=== PATIENT | female | born 1990 | race Asian ===

== ENCOUNTER → 2017-09-21 | Outpatient (CLI) | payer OTHER | END | disposition home or self-care (01) | LOC: C.PAPS 17:46 | PROVIDERS: ATTEND Obstetrics & Gynecology | DX: Z34.01 Encounter for supervision of normal first pregnancy, first trimester (principal) ==

== ENCOUNTER 2018-04-25 04:10 | Inpatient (IN) ==
[2018-04-25] MEDS ORDERED: LACTATED RINGER'S 1,000 ML IV PRN ×2 (04:37→07:07)
[2018-04-25] MEDS ORDERED: OXYTOCIN 30 UNITS/500 ML BAG IV PRN ×2 (04:37→14:58)
[2018-04-25] MEDS ORDERED: PENICILLIN G POTASSIUM 3 MU in DEXTROSE 5% 100 ML IV PRN (04:37)
[2018-04-25] MEDS ORDERED: LACTATED RINGER'S 1,000 ML IV SCH (04:45)
[2018-04-25 04:58] LABS: Hematocrit (blood only) 39.9 % (37-47); Hemoglobin 13.8 g/dL (12.0-16.0); Mean Corpuscular Volume 91.1 fL (80-100); Mean Platelet Volume 10.8 fL (7.4-10.4); Platelet Count 204 K/uL (130-400); RDW Coefficient of Variation 13.2 % (11.5-14.5); RDW Standard Deviation 43.6 fL (36.4-46.3); Red Blood Count 4.38 M/uL (4.2-5.4); White Blood Count 11.39 K/uL (4.8-10.8)
[2018-04-25 04:59] LABS: Mean Corpuscular Hgb Conc 34.6 g/dL (32-36)
[2018-04-25] MEDS ORDERED: PENICILLIN G POTASSIUM 6 MU in DEXTROSE 5% 250 ML IV ONE (05:00)
[2018-04-25] MEDS ORDERED: BUPIVACAINE 0.25% 30 ML VIAL ONE (05:18)
[2018-04-25] MEDS ORDERED: ePHEDrine sulfate 50 MG/ML AMP ONE (05:18)
[2018-04-25] MEDS ORDERED: fentaNYL 2MCG/ML ROPIV 1.25MG/ML 100 ML BAG EPI ONE (05:19)
[2018-04-25] MEDS ORDERED: fentaNYL citrate 100 MCG/2 ML VIAL ONE (05:19)
--- NOTE | 2018-04-25 06:27 | Anesthesiology Consultation ---
Date of Service April 25, 2018 Assessment & Plan Chart Review Chart Review: Patient NOT seen in Pre Admission Testing and Acceptable Risk for Labor Epidural Consults Requested none ASA ASA3 Proposed Anesthesia Anesthesia Type: Labor Epidural Risk / Benefits Reviewed With: PT / POA / Parent / Guardian, Accepts Plan and Informed Consent Obtained NPO Date Last Intake of Fluids: 04/25/18 Time Last Intake of Fluids: 06:25 Date Last Intake of Solids: 04/24/18 Time Last Intake of Solids: 23:00 History Height/Weight Height: 5 ft 3 in Weight: 53.977 kg Allergies Allergy/AdvReac Type Severity Reaction Status Date / Time No Known Allergies Allergy Unverified 04/14/18 20:51 Medications Home Medications Medication Instructions Recorded Confirmed Last Taken Humulin N NPH U-100 Insulin 5 unit HS 04/14/18 04/14/18 04/13/18 23:30 insulin lispro [Humalog KwikPen 5 unit AC 04/14/18 04/14/18 04/14/18 11:30 Insulin] Active Medications Generic Name Dose Route Start Last Admin Trade Name Freq PRN Reason Stop Dose Admin Lactated Ringer's 1,000 mls @ 999 mls/hr 04/25/18 04:37 04/25/18 05:30 Lr IV 05/25/18 04:36 0 mls/hr .Q1H1M PRN Infusion (Pre-Anesthesia) Lactated Ringer's 1,000 mls @ 125 mls/hr 04/25/18 04:45 04/25/18 07:02 Lr IV 04/27/18 04:44 125 mls/hr .Q8H [facility] Administration Past Medical History Medical History Gestational diabetes Past Anesthesia History No Family Hx of Anesthesia Complications no prior history of anes Motion Sickness Screening History of Motion Sickness: Yes Social History Smoking Status: Never smoker Do You Dip or Chew Tobacco: No Hx Alcohol Use: No Hx Substance Use: No substance use type: does not use Exercise / Class Metabolic Activity Negative for chest pain or shortness of breath. Review of Systems Patient denies active symptoms of GERD. Patient denies history of abnormal bleeding or bleeding disorder. Patient denies active use of anticoagulants other than low dose aspirin. Patient denies numbness, tingling or weakness in his lower extremities. Physical Exam Vital Signs Last Vital Signs Temp 37 C 04/25/18 04:20 Pulse 58 L 04/25/18 06:18 Resp 24 04/25/18 04:20 BP 138/82 04/25/18 05:56 Pulse Ox 93 04/25/18 06:18 Constitutional not obese (Gravid uterus) ENMT Mouth: + small oral opening; no TMJ abnormality Thyromental Distance: < 3.5 Finger Breadths Mallampati Class: III Neck normal visual inspection; neck extension not limited Respiratory normal respiratory effort Auscultation: lungs clear to auscultation bilaterally Cardiovascular Rate/Rhythm: regular rate and regular rhythm Heart Sounds: no murmur Psychiatric A+Ox3, euthymic affect Orientation: alert and oriented x 3 Testing Laboratory Results 04/25/18 04:50
--- NOTE | 2018-04-25 06:37 | History & Physical Report ---
Date of Service April 25, 2018 Assessment & Plan (1) Normal labor: IUP at 38 6/7 weeks in active labor GBS positive start PCN G prophylaxis patient requesting epidural analgesia anticipate vaginal Present on Admission?: Yes (2) Insulin controlled gestational diabetes mellitus (GDM) in third trimester: monitor BSG's during labor. Present on Admission?: Yes History of Present Illness Primary Care Provider: NO PCP Patient is a 27 yo female who presents at 38 6/7 weeks with regular contractions every 5 minutes with bloody show. No SPROM. complicated by GBS carrier status & GDM on insulin. Blood sugars have been well controlled during the Allergies Allergy/AdvReac Type Severity Reaction Status Date / Time No Known Allergies Allergy Unverified 04/14/18 20:51 Home Medications Home Medications Medication Instructions Recorded Confirmed Type Humulin N NPH U-100 Insulin 5 unit HS 04/14/18 04/14/18 History insulin lispro [Humalog KwikPen 5 unit AC 04/14/18 04/14/18 History Insulin] Patient History Medical History Gestational diabetes Social History Preferred Language: Afghan Communication Ability: Effective Mangle Roller Required: No Beliefs That Will Affect Care: None marital status: Current Living Situation: Spouse Current Living Situation Comment: Parents are visiting from [place] Other Information That Helps Us Care for You: No Feels Safe at Home: Yes Smoking Status: Never smoker Hx Alcohol Use: No Hx Substance Use: No Review of Systems All systems reviewed & are unremarkable except as noted in HPI & below Physical Exam Vital Signs (Past 24 Hours): Last Vital Signs Temp 37 C 04/25/18 04:20 Pulse 65 04/25/18 06:32 Resp 24 04/25/18 04:20 BP 129/78 04/25/18 06:32 Pulse Ox 96 04/25/18 06:30 Constitutional: WD/WN, vitals as above Respiratory: normal respiratory effort, lungs clear to auscultation Cardiovascular: RRR, no murmur, no edema Genitourinary: OB Exam Abdomen: + vertex and + regular contractions Manual OB Exam: + cervical dilation 5 cm, + cervical effacement 100% and + station -2 OB Exam Monitor Tracing: + external FHT monitor used, + external uterine monitor used, + category II and + normal FHT variability mild to moderate variables sporadically.
[2018-04-25] MEDS ORDERED: fentaNYL 2MCG/ML ROPIV 1.25MG/ML 100 ML BAG EPI PRN (07:07)
[2018-04-25] MEDS ORDERED: DiphenhydrAMINE HCL 50 MG/ML VIAL IV PRN (07:07)
[2018-04-25] MEDS ORDERED: ONDANSETRON INJ 2 MG/ML 2 ML VIAL IV PRN (07:07)
[2018-04-25] MEDS ORDERED: NALOXONE HCL 0.4 MG/1 ML VIAL/CARP IV PRN (07:07)
[2018-04-25] MEDS ORDERED: NALBUPHINE HCL INJ 10 MG/ML AMP IV PRN (07:07)
[2018-04-25] MEDS ORDERED: NALOXONE HCL 1 MG in SODIUM CHLORIDE 0.9% 1000ML 1,000 ML IV PRN (07:07)
[2018-04-25] MEDS ORDERED: ePHEDrine sulfate 50 MG/ML AMP IV PRN (07:07)
[2018-04-25] MEDS ORDERED: SUPERCREAM 0.870% 15 GM JAR EXT PRN (14:58)
[2018-04-25] MEDS ORDERED: BENZOCAINE 20% AER SPR 82.5 GM CAN EXT PRN (14:58)
[2018-04-25] MEDS ORDERED: ACETAMINOPHEN 325 MG TAB PO PRN (14:58)
[2018-04-25] MEDS ORDERED: HYDROCORTISONE ACETATE 25 MG SUPP PR PRN (14:58)
[2018-04-25] MEDS ORDERED: DIPHTHERIA/TETANUS/PERTUSSIS 0.5 ML SYR/VIAL IM ONE (14:58)
[2018-04-25] MEDS ORDERED: OXYCODONE/ACETAMINOPHEN 5mg/325mg TAB PO PRN (14:58)
[2018-04-25] MEDS ORDERED: BISACODYL 10 MG SUPP PR PRN (14:58)
--- NOTE | 2018-04-25 15:03 | Procedure Note ---
Vaginal Delivery Summary Date of Service April 25, 2018 of live male . Uncomplicated vaginal delivery clear fluid no nuchal cord baby delivered in occiput anterior position gentle traction no excessive force cord clamped and cut cord gases obtained cord blood obtained placenta removed with traction IV Pitocin started second-degree tear repaired with 3-0 Vicryl sponge and instrument counts correct estimated blood loss 250 mL rectal exam negative for sutures or defects
[2018-04-25 15:21] LABS: Base Excess Cord Venous Blood -0.3 mEq/L (-7.7-1.9); Cord Venous Blood HCO3 25 mmol/L (18.4-26.8); Cord Venous Blood PCO2 40 mmHg (30.4-57.2); Cord Venous Blood PO2 33 mmHg (14.1-43.3)
[2018-04-25 15:25] LABS: Base Excess Cord Arterial Bld -0.5 mEq/L (-9-1.8); CO2 Cord Arterial Blood 59 mmHg (39.1-73.5); HCO3 Cord Arterial Blood 27 mmol/L (19.7-28.5); pH Cord Arterial Blood 7.28 (7.1-7.38)
--- NOTE | 2018-04-25 15:39 | Anesthesia Procedure Note ---
Date of Service April 25, 2018 Anesthesia Post Epidural Note Vital Signs Vital Signs: Temp Pulse Resp BP Pulse Ox 99.9 F H 70 18 109/70 95 04/25/18 15:00 04/25/18 15:31 04/25/18 15:00 04/25/18 15:31 04/25/18 14:40 Notes Mental Status: alert / awake / arousable and participated in evaluation Nausea / Vomiting: adequately controlled Pain: adequately controlled Airway Patency, RR, SpO2: stable & adequate BP & HR: stable & adequate Hydration State: stable & adequate Neuraxial Anesthesia: was administered and sensory block is resolving Anesthetic Complications: no major complications apparent and Pt Satisfied with anesthetic care Epidural: Removed without complications and With tip intact
[2018-04-25] MEDS: DOCUSATE SODIUM 100 MG CAP PO SCH (20:41)
--- NOTE | 2018-04-26 06:51 | Obstetrical Progress Note ---
Date of Service <Dago Lentz - Last Filed: 04/26/18 06:53> April 26, 2018 Assessment & Plan <Dago Lentz - Last Filed: 04/26/18 06:53> (1) (spontaneous vaginal delivery): -vital signs reviewed and WNL -last Hgb 13.8 -Blood type: O+, GBS+, Rubella Immune -pt doing well clinically -encourage ambulation, monitor and control pain with motrin tylenol, cont regular diet, monitor lochia -cont encourage breast feeding Subjective <Dago Lentz - Last Filed: 04/26/18 06:53> 27 y/o PPD1 found in bed this morning in NAD. Reports no acute overnight events. Pt states that she has no pain other than appropriate soreness. Tolerating PO intake without N/V. Able to ambulate without issue. She is breast feeding without issue. No issues with voiding, no BM yet. No other acute concerns or complaints. Review of Systems All systems reviewed & are unremarkable except as noted in HPI & below Physical Exam <Dago Lentz - Last Filed: 04/26/18 06:53> Vital Signs (Past 24 Hours) Last Vital Signs Temp 36.9 C 04/26/18 03:55 Pulse 81 04/26/18 03:55 Resp 16 04/26/18 03:55 BP 104/70 04/26/18 03:55 Pulse Ox 98 04/26/18 03:55 Constitutional WD/WN, vitals as above Eyes PERRL, conjunctivae normal, anicteric sclerae ENMT external ear and nose normal, oropharynx normal Respiratory normal respiratory effort, lungs clear to auscultation Cardiovascular RRR, no murmur, no edema Gastrointestinal (Abdomen) mild abd tenderness Skin no rashes, warm and dry Psychiatric A+Ox3, euthymic affect Lymphatic no LE swelling, no calf tenderness Results & Data <Dago Lentz - Last Filed: 04/26/18 06:53> Laboratory Results Laboratory Results - last 24 hr 04/25/18 04/25/18 04/25/18 07:11 09:37 11:41 Cord ABG pH Cord ABG pCO2 Cord ABG pO2 Cord ABG HCO3 Cord ABG Base Excess Cord ABG O2 Sat Cord VBG pH Cord VBG pCO2 Cord VBG pO2 Cord VBG HCO3 Cord VBG Base Excess Cord VBG O2 Sat Barometric Pressure Blood Gas Comments POC Glucose 104 H 77 82 04/25/18 04/25/18 04/25/18 13:37 14:43 14:43 Cord ABG pH 7.28 Cord ABG pCO2 59 Cord ABG pO2 17.0 Cord ABG HCO3 27 Cord ABG Base Excess -0.5 Cord ABG O2 Sat < 60.0 Cord VBG pH 7.40 Cord VBG pCO2 40 Cord VBG pO2 33 Cord VBG HCO3 25 Cord VBG Base Excess -0.3 Cord VBG O2 Sat 74.0 H Barometric Pressure 737.6 737.6 Blood Gas Comments JAIN JAIN POC Glucose 76 Medications Administered Current Inpatient Medications Acetaminophen (Tylenol) 650 mg PO Q6H PRN PRN Reason: Pain/CARRILLO/Fever Stop: 05/25/18 14:57 Benzocaine (Dermoplast Pain Relieving [place]) 1 appln EXT PRN PRN PRN Reason: Perineal Discomfort Stop: 05/25/18 14:57 Last Admin: 04/25/18 20:41 Dose: 82.5 appln Documented by: Bisacodyl (Dulcolax) 10 mg [place] DAILY PRN PRN Reason: No BM on 2nd post- day Stop: 05/25/18 14:57 Bisacodyl (Dulcolax) [address] [facility] Stop: 04/26/18 20:01 Cocaine HCl (Supercream 0.870%) 1 gm EXT BID PRN PRN Reason: Hemorrhoidal Inflammation Stop: 05/09/18 14:57 Docusate Sodium (Colace) [address] [facility] Stop: 05/25/18 20:59 Last Admin: 04/25/18 20:41 Dose: 100 mg Documented by: Hydrocortisone (Anusol Hc) 25 mg [place] BID PRN PRN Reason: Hemorrhoidal Inflammation Stop: 05/25/18 14:57 Lactated Ringer's (Lr) 1,000 mls @ 999 mls/hr IV .Q1H1M PRN PRN Reason: (Pre-Anesthesia) Stop: 05/25/18 04:36 Last Infusion: 04/25/18 05:30 Dose: 0 mls/hr Documented by: Oxytocin (Pitocin) 30 units in 500 mls @ 333.333 mls/hr IV .Q1H30M PRN; Protocol PRN Reason: Bleeding Control Stop: 05/25/18 04:36 Penicillin G Potassium 3 mu/ (Dextrose) 106 mls @ 100 mls/hr IV Q4H PRN PRN Reason: Give until delivery Stop: 05/05/18 04:36 Last Admin: 04/25/18 10:06 Dose: 100 mls/hr Documented by: Lactated Ringer's (Lr) 1,000 mls @ 125 mls/hr IV .Q8H [place] Stop: 04/27/18 04:44 Last Admin: 04/25/18 07:02 Dose: 125 mls/hr Documented by: Oxytocin (Pitocin) 30 units in 500 mls @ 333.333 mls/hr IV .Q1H30M PRN; Protocol PRN Reason: BLEEDING CONTROL Stop: 05/25/18 14:57 Ibuprofen (Motrin) 600 mg PO Q4H PRN PRN Reason: Pain/CARRILLO/Cramping/Fever Stop: 05/25/18 14:57 Oxycodone/Acetaminophen (Percocet 5mg/325mg) 1 tab PO Q4H PRN PRN Reason: Pain not relieved by... Stop: 05/09/18 14:57 Prenat Multivit/[place]/Iron/Folic Ac ( Vitamin) [address] [facility] Stop: 05/26/18 08:59 <Jonathan Jacobs MD, FACOG - Last Filed: 04/26/18 07:55> Co-Signing Physician Notes Resident Physician Supervision Note: I interviewed and examined the patient. Discussed with Dr. Canales and agree with findings and plan as documented in the note. Any exceptions or clarifications are listed here: [None] Documented By: Jonathan Jacobs MD, FACOG Resident Activity Tracking <Dago Lentz DO - Last Filed: 04/26/18 06:53> Resident Involvement: Resident Care Provided Care Provided: Adult Hospital Medicine
--- NOTE | 2018-04-26 06:57 | Obstetrical Progress Note ---
Date of Service April 26, 2018 Assessment & Plan (1) (spontaneous vaginal delivery): -vital signs reviewed and WNL -last Hgb 13.8 -Blood type: O+, GBS+, Rubella Immune -pt doing well clinically -encourage ambulation, monitor and control pain with motrin tylenol, cont regular diet, monitor lochia -cont encourage breast feeding Subjective 30 y/o POD2 found in bed this morning in NAD. Reports no acute overnight events. Pt states that she has no pain other than appropriate soreness. Tolerating PO intake without N/V. Able to ambulate without issue. She is breast feeding without issue. No issues with voiding, no BM yet. No other acute concerns or complaints. Pt desires to be d/c today. Review of Systems All systems reviewed & are unremarkable except as noted in HPI & below Physical Exam Vital Signs (Past 24 Hours) Last Vital Signs Temp 36.9 C 04/26/18 03:55 Pulse 81 04/26/18 03:55 Resp 16 04/26/18 03:55 BP 104/70 04/26/18 03:55 Pulse Ox 98 04/26/18 03:55 Constitutional WD/WN, vitals as above Eyes PERRL, conjunctivae normal, anicteric sclerae ENMT external ear and nose normal, oropharynx normal Respiratory normal respiratory effort, lungs clear to auscultation Cardiovascular RRR, no murmur, no edema Gastrointestinal (Abdomen) mild abd tenderness Incision C/D/I Skin no rashes, warm and dry Psychiatric A+Ox3, euthymic affect Results & Data Laboratory Results Laboratory Results - last 24 hr 04/25/18 04/25/18 04/25/18 07:11 09:37 11:41 Cord ABG pH Cord ABG pCO2 Cord ABG pO2 Cord ABG HCO3 Cord ABG Base Excess Cord ABG O2 Sat Cord VBG pH Cord VBG pCO2 Cord VBG pO2 Cord VBG HCO3 Cord VBG Base Excess Cord VBG O2 Sat Barometric Pressure Blood Gas Comments POC Glucose 104 H 77 82 04/25/18 04/25/18 04/25/18 13:37 14:43 14:43 Cord ABG pH 7.28 Cord ABG pCO2 59 Cord ABG pO2 17.0 Cord ABG HCO3 27 Cord ABG Base Excess -0.5 Cord ABG O2 Sat < 60.0 Cord VBG pH 7.40 Cord VBG pCO2 40 Cord VBG pO2 33 Cord VBG HCO3 25 Cord VBG Base Excess -0.3 Cord VBG O2 Sat 74.0 H Barometric Pressure 737.6 737.6 Blood Gas Comments JAIN JAIN POC Glucose 76 Medications Administered Current Inpatient Medications Acetaminophen (Tylenol) 650 mg PO Q6H PRN PRN Reason: Pain/CARRILLO/Fever Stop: 05/25/18 14:57 Benzocaine (Dermoplast Pain Relieving [place]) 1 appln EXT PRN PRN PRN Reason: Perineal Discomfort Stop: 05/25/18 14:57 Last Admin: 04/25/18 20:41 Dose: 82.5 appln Documented by: Bisacodyl (Dulcolax) 10 mg [place] DAILY PRN PRN Reason: No BM on 2nd post- day Stop: 05/25/18 14:57 Bisacodyl (Dulcolax) 5 mg PO 1999 [facility] Stop: 04/26/18 20:01 Cocaine HCl (Supercream 0.870%) 1 gm EXT BID PRN PRN Reason: Hemorrhoidal Inflammation Stop: 05/09/18 14:57 Docusate Sodium (Colace) 100 mg PO BID [facility] Stop: 05/25/18 20:59 Last Admin: 04/25/18 20:41 Dose: 100 mg Documented by: Hydrocortisone (Anusol Hc) 25 mg [place] BID PRN PRN Reason: Hemorrhoidal Inflammation Stop: 05/25/18 14:57 Lactated Ringer's (Lr) 1,000 mls @ 999 mls/hr IV .Q1H1M PRN PRN Reason: (Pre-Anesthesia) Stop: 05/25/18 04:36 Last Infusion: 04/25/18 05:30 Dose: 0 mls/hr Documented by: Oxytocin (Pitocin) 30 units in 500 mls @ 333.333 mls/hr IV .Q1H30M PRN; Protocol PRN Reason: Bleeding Control Stop: 05/25/18 04:36 Penicillin G Potassium 3 mu/ (Dextrose) 106 mls @ 100 mls/hr IV Q4H PRN PRN Reason: Give until delivery Stop: 05/05/18 04:36 Last Admin: 04/25/18 10:06 Dose: 100 mls/hr Documented by: Lactated Ringer's (Lr) 1,000 mls @ 125 mls/hr IV .Q8H [facility] Stop: 04/27/18 04:44 Last Admin: 04/25/18 07:02 Dose: 125 mls/hr Documented by: Oxytocin (Pitocin) 30 units in 500 mls @ 333.333 mls/hr IV .Q1H30M PRN; Protocol PRN Reason: BLEEDING CONTROL Stop: 05/25/18 14:57 Ibuprofen (Motrin) 600 mg PO Q4H PRN PRN Reason: Pain/CARRILLO/Cramping/Fever Stop: 05/25/18 14:57 Oxycodone/Acetaminophen (Percocet 5mg/325mg) 1 tab PO Q4H PRN PRN Reason: Pain not relieved by... Stop: 05/09/18 14:57 Prenat Multivit/[place]/Iron/Folic Ac ( Vitamin) 1 tab PO QAM [facility] Stop: 05/26/18 08:59
[2018-04-26 07:36] LABS: Hematocrit (blood only) 31.7 % (37-47); Hemoglobin 10.7 g/dL (12.0-16.0); Mean Corpuscular Hgb Conc 33.8 g/dL (32-36); Mean Corpuscular Volume 92.4 fL (80-100); Mean Platelet Volume 10.4 fL (7.4-10.4); Platelet Count 160 K/uL (130-400); RDW Coefficient of Variation 13.5 % (11.5-14.5); RDW Standard Deviation 45.3 fL (36.4-46.3); Red Blood Count 3.43 M/uL (4.2-5.4); White Blood Count 12.54 K/uL (4.8-10.8)
[2018-04-26] MEDS: DOCUSATE SODIUM 100 MG CAP PO SCH ×2 (10:00→20:15)
[2018-04-26] MEDS: PRENATAL VITAMIN 1 TAB PO SCH (10:00)
[2018-04-26] MEDS: IBUPROFEN 600 MG TAB PO PRN (10:02)
[2018-04-26] MEDS ORDERED: BISACODYL 5 MG TABEC PO SCH (20:00)
--- NOTE | 2018-04-27 06:51 | Obstetrical Progress Note ---
Date of Service <Dago Lentz - Last Filed: 04/27/18 06:51> April 27, 2018 Assessment & Plan <Dago Lentz - Last Filed: 04/27/18 06:51> (1) (spontaneous vaginal delivery): -vital signs reviewed and WNL -last Hgb 10.7 -Blood type: O+, GBS+, Rubella Immune -pt doing well clinically -encourage ambulation, monitor and control pain with motrin tylenol, cont regular diet, monitor lochia -cont encourage breast feeding -plan for d/c today Subjective <Dago Lentz DO - Last Filed: 04/27/18 06:51> 27 y/o PPD2 found in bed this morning in NAD. Reports no acute overnight events. Pt states that she has no pain other than appropriate soreness. Tolerating PO intake without N/V. Able to ambulate without issue. She is breast feeding without issue. No issues with voiding, no BM yet. No other acute concerns or complaints. Pt ok with plan for d/c today. Review of Systems All systems reviewed & are unremarkable except as noted in HPI & below Physical Exam <Dago Lentz - Last Filed: 04/27/18 06:51> Vital Signs (Past 24 Hours) Last Vital Signs Temp 37.1 C 04/26/18 23:40 Pulse 64 04/26/18 23:40 Resp 18 04/26/18 23:40 BP 112/71 04/26/18 23:40 Pulse Ox 100 04/26/18 23:40 Constitutional WD/WN, vitals as above Eyes PERRL, conjunctivae normal, anicteric sclerae ENMT external ear and nose normal, oropharynx normal Respiratory normal respiratory effort, lungs clear to auscultation Cardiovascular RRR, no murmur, no edema Gastrointestinal (Abdomen) mild abd tenderness fundus at U Skin no rashes, warm and dry Psychiatric A+Ox3, euthymic affect Lymphatic no LE swelling, no calf tenderness Results & Data <Dago Lentz - Last Filed: 04/27/18 06:51> Laboratory Results Laboratory Results - last 24 hr 04/26/18 07:00 WBC 12.54 H RBC 3.43 L Hgb 10.7 L D Hct 31.7 L MCV 92.4 MCH 31.2 MCHC 33.8 RDW Std Deviation 45.3 RDW Coeff of Radha 13.5 Plt Count 160 MPV 10.4 Medications Administered Current Inpatient Medications Acetaminophen (Tylenol) 650 mg PO Q6H PRN PRN Reason: Pain/CARRILLO/Fever Stop: 05/25/18 14:57 Benzocaine (Dermoplast Pain Relieving [place]) 1 appln EXT PRN PRN PRN Reason: Perineal Discomfort Stop: 05/25/18 14:57 Last Admin: 04/25/18 20:41 Dose: 82.5 appln Documented by: Bisacodyl (Dulcolax) 10 mg [place] DAILY PRN PRN Reason: No BM on 2nd post- day Stop: 05/25/18 14:57 Cocaine HCl (Supercream 0.870%) 1 gm EXT BID PRN PRN Reason: Hemorrhoidal Inflammation Stop: 05/09/18 14:57 Docusate Sodium (Colace) 100 mg PO BID [facility] Stop: 05/25/18 20:59 Last Admin: 04/26/18 20:15 Dose: 100 mg Documented by: Hydrocortisone (Anusol Hc) 25 mg [place] BID PRN PRN Reason: Hemorrhoidal Inflammation Stop: 05/25/18 14:57 Lactated Ringer's (Lr) 1,000 mls @ 999 mls/hr IV .Q1H1M PRN PRN Reason: (Pre-Anesthesia) Stop: 05/25/18 04:36 Last Infusion: 04/25/18 05:30 Dose: 0 mls/hr Documented by: Oxytocin (Pitocin) 30 units in 500 mls @ 333.333 mls/hr IV .Q1H30M PRN; Protocol PRN Reason: Bleeding Control Stop: 05/25/18 04:36 Penicillin G Potassium 3 mu/ (Dextrose) 106 mls @ 100 mls/hr IV Q4H PRN PRN Reason: Give until delivery Stop: 05/05/18 04:36 Last Admin: 04/25/18 10:06 Dose: 100 mls/hr Documented by: Oxytocin (Pitocin) 30 units in 500 mls @ 333.333 mls/hr IV .Q1H30M PRN; Protocol PRN Reason: BLEEDING CONTROL Stop: 05/25/18 14:57 Ibuprofen (Motrin) 600 mg PO Q4H PRN PRN Reason: Pain/CARRILLO/Cramping/Fever Stop: 05/25/18 14:57 Last Admin: 04/26/18 10:02 Dose: 600 mg Documented by: Oxycodone/Acetaminophen (Percocet 5mg/325mg) 1 tab PO Q4H PRN PRN Reason: Pain not relieved by... Stop: 05/09/18 14:57 Prenat Multivit/[place]/Iron/Folic Ac ( Vitamin) 1 tab PO QAM [facility] Stop: 05/26/18 08:59 Last Admin: 04/26/18 10:00 Dose: 1 tab Documented by: <Josie Lincoln MD, FACOG - Last Filed: 04/27/18 07:31> Co-Signing Physician Notes Resident Physician Supervision Note: I interviewed and examined the patient. Discussed with Dr. Lentz and agree with findings and plan as documented in the note. Any exceptions or clarifications are listed here: On my exam, fundus firm and 1 below u. Doing well. Plan d/c today. Instructions reviewed. Documented By: Josie Lincoln MD, FACOG Resident Activity Tracking <Dago Lentz, - Last Filed: 04/27/18 06:51> Resident Involvement: Resident Care Provided Care Provided: OB Delivery
[2018-04-27 07:17] LABS: Hematocrit (blood only) 30.8 % (37-47); Hemoglobin 10.5 g/dL (12.0-16.0)
[2018-04-27] MEDS: IBUPROFEN 600 MG TAB PO PRN (08:36)
[2018-04-27] MEDS: PRENATAL VITAMIN 1 TAB PO SCH (08:36)
[2018-04-27] MEDS: DOCUSATE SODIUM 100 MG CAP PO SCH (08:36)
== END 2018-04-27 17:50 | disposition home or self-care (01) | DRG 807 ==
LOC: OPB 04:10 → 4S1 04:15 → 4S2 18:45